=== PATIENT | female | born 1975 | race Caucasian/White ===

== ENCOUNTER 2020-12-13 16:44 | Emergency (ER) | payer OTHER ==
[~2020-12-13] VITALS: Ht 152.4 cm; Wt 106.8 kg
[2020-12-13 16:48] VITALS: BP 168/111
[2020-12-13] MEDS ORDERED: acetaminophen 325mg tablet PO ONE ×2 (18:15)
[2020-12-13 19:17] LABS: URINE HCG NEGATIVE (NEG)
[2020-12-13 19:18] LABS: CLARITY,URINE CLEAR (Clear); COLOR,URINE YELLOW (Yellow); GLUCOSE, URINE NEGATIVE (Neg); KETONES,URINE NEGATIVE (Neg); LEUKOCYTE ESTERASE ,URINE NEGATIVE (Neg); NITRITES, URINE NEGATIVE (Neg); OCCULT BLOOD,URINE SMALL (Neg); PH,URINE 5.5 (4.8-8.0); PROTEIN,URINE NEGATIVE (Neg); UROBILINOGEN,URINE 0.2 E.U/dL (0.2-1.0)
[2020-12-13 19:19] LABS: UA COLLECTION TYPE CLN CATCH MIDSTREAM
[2020-12-13 19:24] LABS: BACTERIA,URINE NONE SEEN /HPF (Neg); RBC,URINE 0-2 /HPF (0-2); SQUAMOUS EPITHELIAL CELL,UR MODERATE /LPF (FEW); WBC,URINE 0-4 /HPF (0-4)
[2020-12-13] MEDS ORDERED: ondansetron 4mg rapidly disintigrating tab PO ONE (19:50)
[2020-12-13] MEDS ORDERED: HYDR-3965 PO (19:53)
[2020-12-13] MEDS ORDERED: ONDA4TAB6 PO (19:54)
== END 2020-12-13 20:09 | disposition home or self-care (01) ==
LOC: ER 16:45
DX: R14.0 Abdominal distension (gaseous) (principal); I10 Essential (primary) hypertension; R06.02 Shortness of breath; E11.9 Type 2 diabetes mellitus without complications; Z72.89 Other problems related to lifestyle; Z98.890 Other specified postprocedural states
CPT/HCPCS: 76700; 81001; 81025; 99284

== ENCOUNTER 2022-01-26 02:37 | Emergency (ER) | payer OTHER ==
[~2022-01-26] VITALS: Ht 149.9 cm; Wt 95.5 kg
[~2022-01-26 02:37] MED LIST: ONDA4TAB6 PO
[2022-01-26 06:24] LABS: BASOPHILS # (AUTO) 0.1 X10'3 (0-0.2); BASOPHILS % (AUTO) 0.7 % (0-1); EOSINOPHILS # (AUTO) 0.1 X10'3 (0-0.9); EOSINOPHILS % (AUTO) 0.8 % (0-6); HEMATOCRIT 43.6 % (35.0-45.0); HEMOGLOBIN 14.8 g/dl (12.0-16.0); LYMPHOCYTES # (AUTO) 2.2 X10'3 (1.1-4.8); LYMPHOCYTES % (AUTO) 14.5 % (21-51); MEAN CORPUSCULAR HEMOGLOBIN 30.2 PG (27.0-31.0); MEAN CORPUSCULAR HGB CONC 33.8 g/dL (33.0-36.5); MEAN CORPUSCULAR VOLUME 89.2 FL (78-98); MEAN PLATELET VOLUME 9.3 FL (7.4-10.4); MONOCYTES # (AUTO) 0.8 X10'3 (0-0.9); MONOCYTES % (AUTO) 5.5 % (2-12); NEUTROPHILS % (AUTO) 78.5 % (42-75); PLATELET COUNT 225 X10'3 (140-440); RED BLOOD COUNT 4.89 X10'6 (4.20-5.60); RED CELL DISTRIBUTION WIDTH 14.2 % (11.5-14.5); WHITE BLOOD COUNT 15.2 X10'3 (4.5-11.0)
[2022-01-26 06:35] LABS: URINE HCG NEGATIVE (NEG)
[2022-01-26 06:48] LABS: CLARITY,URINE SLIGHTLY CLOUDY (Clear); COLOR,URINE YELLOW (Yellow); GLUCOSE, URINE NEGATIVE (Neg); KETONES,URINE NEGATIVE (Neg); LEUKOCYTE ESTERASE ,URINE NEGATIVE (Neg); NITRITES, URINE NEGATIVE (Neg); OCCULT BLOOD,URINE SMALL (Neg); PH,URINE 5.5 (4.8-8.0); PROTEIN,URINE NEGATIVE (Neg); UROBILINOGEN,URINE 0.2 E.U/dL (0.2-1.0)
[2022-01-26] MEDS ORDERED: morphine 4 MG/ML inj SYRINge IV ONE (06:50)
[2022-01-26] MEDS ORDERED: normal saline 1000ML IV soln IVB ONE (06:50)
[2022-01-26] MEDS ORDERED: ondansetron/PF 4mg/2ml inj IV ONE (06:50)
[2022-01-26 06:53] LABS: ALANINE AMINOTRANSFERASE 23 U/L (12-78); ALBUMIN 3.6 G/DL (3.4-5.0); ALBUMIN/GLOBULIN RATIO 0.7 (1.1-1.5); ALKALINE PHOSPHATASE 125 IU/L (46-116); ANION GAP 8 (8-16); ASPARTATE AMINO TRANSFERASE 18 U/L (10-37); BILIRUBIN,TOTAL 0.6 MG/DL (0.1-1.0); BLOOD UREA NITROGEN 22 MG/DL (7-18); BUN/CREATININE RATIO 31.4 (6.6-38.0); CHLORIDE 99 MMOL/L (99-107); GLUCOSE 202 MG/DL (70-104); POTASSIUM 3.7 MMOL/L (3.5-5.1); SODIUM 134 MMOL/L (135-145); TOTAL CARBON DIOXIDE 26.8 MMOL/L (24-32); TOTAL PROTEIN 8.5 G/DL (6.4-8.2); eGFR 89 ML/MIN
[2022-01-26 06:55] LABS: LIPASE 63 U/L (73-393)
[2022-01-26 06:57] LABS: UA COLLECTION TYPE CLN CATCH MIDSTREAM
[2022-01-26 06:58] LABS: BACTERIA,URINE FEW /HPF (Neg); MUCUS STRANDS MODERATE /LPF (Neg); RBC,URINE 0-2 /HPF (0-2); SQUAMOUS EPITHELIAL CELL,UR MANY /LPF (FEW); WBC,URINE 0-4 /HPF (0-4)
--- NOTE | 2022-01-26 07:10 | NUR ---
US TECH AT BEDSIDE.
--- NOTE | 2022-01-26 07:17 | NUR ---
DR WARD AT BEDSIDE.
[2022-01-26] MEDS ORDERED: ketorolac tromethamine 15mg/ml inj. IV ONE (07:20)
[2022-01-26] MEDS ORDERED: morphine 2 MG/ML inj. syringe IV PRN ×2 (09:50→10:15)
[2022-01-26] MEDS ORDERED: iohexol 350 MG/1 ML 200ml bottle ONE (10:16)
[2022-01-26] MEDS ORDERED: levoFLOXACIN-Levaquin 750MG/D5 150 ML IV ONE (11:20)
[2022-01-26] MEDS ORDERED: AZIT-31 PO (11:23)
[2022-01-26] MEDS ORDERED: HYDR-3965 PO (11:23)
[2022-01-26] MEDS ORDERED: BENZ-38 PO (11:23)
[2022-01-26 13:26] VITALS: BP 124/64
== END 2022-01-26 13:29 | disposition home or self-care (01) ==
LOC: ER 02:38
DX: K59.00 Constipation, unspecified (principal); J18.9 Pneumonia, unspecified organism; R07.9 Chest pain, unspecified; I10 Essential (primary) hypertension; J45.909 Unspecified asthma, uncomplicated; E11.9 Type 2 diabetes mellitus without complications; F17.200 Nicotine dependence, unspecified, uncomplicated
CPT/HCPCS: 36415; 71045; 71275; 74176; 76700; 80053; 81001; 81025; 82948; 83690; 83880; 84484; 85025; 93005; 96361; 96365; 96375; 96376; 99285; J1885; J1956; J2270; J2405; J3490; J7030; Q9967

== ENCOUNTER 2022-12-01 10:20 | Emergency (ER) | payer OTHER ==
[~2022-12-01] VITALS: Ht 149.9 cm; Wt 111.6 kg
[2022-12-01 10:22] VITALS: BP 195/89
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
[2022-12-01] MEDS ORDERED: SULF1TAB45 PO (10:49)
[2022-12-01] MEDS ORDERED: CEPH250T PO (10:49)
[2022-12-01] MEDS ORDERED: cephalexin 500mg capsule PO ONE (10:50)
[2022-12-01] MEDS ORDERED: sulfamethoxazole/trimethoprim DS (800/160mg) tablet PO ONE (10:50)
== END 2022-12-01 11:31 | disposition home or self-care (01) ==
LOC: ER 10:21
DX: H00.034 Abscess of left upper eyelid (principal); I10 Essential (primary) hypertension; J45.909 Unspecified asthma, uncomplicated; E11.9 Type 2 diabetes mellitus without complications; Z90.49 Acquired absence of other specified parts of digestive tract; Z79.899 Other long term (current) drug therapy
CPT/HCPCS: 99284

== ENCOUNTER 2024-08-31 12:49 | Emergency (ER) | payer OTHER ==
[~2024-08-31] VITALS: Ht 151.8 cm; Wt 96.8 kg
[2024-08-31] MEDS: benzonatate 100mg capsule PO ONE (14:49)
[2024-08-31 14:53] LABS: BASOPHILS % (AUTO) 0.6 % (0-1); EOSINOPHILS # (AUTO) 0.1 X10'3 (0-0.9); EOSINOPHILS % (AUTO) 1.7 % (0-6); HEMATOCRIT 37.9 % (35.0-45.0); LYMPHOCYTES # (AUTO) 1.4 X10'3 (1.1-4.8); LYMPHOCYTES % (AUTO) 23.2 % (21-51); MEAN CORPUSCULAR HEMOGLOBIN 31.1 PG (27.0-31.0); MEAN CORPUSCULAR HGB CONC 34.3 g/dL (33.0-36.5); MEAN CORPUSCULAR VOLUME 90.7 FL (78-98); MEAN PLATELET VOLUME 8.9 FL (7.4-10.4); MONOCYTES # (AUTO) 0.9 X10'3 (0-0.9); NEUTROPHILS # (AUTO) 3.7 X10'3 (1.8-7.7); NEUTROPHILS % (AUTO) 60.5 % (42-75); PLATELET COUNT 156 X10'3 (140-440); RED BLOOD COUNT 4.17 X10'6 (4.20-5.60); RED CELL DISTRIBUTION WIDTH 13.4 % (11.5-14.5); WHITE BLOOD COUNT 6.1 X10'3 (4.5-11.0)
[2024-08-31] MEDS: albuterol 2.5 MG/3 ML nebule NEB ONE (15:06)
[2024-08-31 15:08] VITALS: PULSE 85; RESP 20; O2SAT 97
[2024-08-31 15:15] VITALS: PULSE 77; RESP 20; O2SAT 99
[2024-08-31 15:18] LABS: ALBUMIN 3.3 G/DL (3.4-5.0); ANION GAP 7 (8-16); BLOOD UREA NITROGEN 12 MG/DL (7-18); BUN/CREATININE RATIO 19.7 (10.0-20.0); CALCIUM 8.2 MG/DL (8.5-10.1); CHLORIDE 101 MMOL/L (99-107); CREATININE 0.61 MG/DL (0.40-0.90); GLUCOSE 142 MG/DL (70-104); PRO BRAIN NATRIURETIC PEPTIDE 31 PG/ML (0-125); SODIUM 137 MMOL/L (135-145); TOTAL CARBON DIOXIDE 28.9 MMOL/L (24-32); eCRCL 78 ML/MIN; eGFR > 90 ML/MIN
[2024-08-31] MEDS: dexamethasone sod phosphate 10mg/ml inj PO STA (15:31)
[2024-08-31] MEDS ORDERED: ALBU18HF2 INH (15:32)
[2024-08-31] MEDS ORDERED: PRED20TA PO (15:32)
[2024-08-31] MEDS ORDERED: TAM75C PO (15:32)
[2024-08-31] MEDS: POTASSIUM CHLORIDE 20 MEQ/15 ML oral solution PO ONE (15:34)
[2024-08-31 15:43] VITALS: BP 108/75; PULSE 89; RESP 20; TEMP 98.6; O2SAT 93
== END 2024-08-31 15:56 | disposition home or self-care (01) ==
LOC: ER 12:50
DX: J10.1 Influenza due to other identified influenza virus with other respiratory manifestations (principal); E87.6 Hypokalemia; E11.9 Type 2 diabetes mellitus without complications; G47.30 Sleep apnea, unspecified; I10 Essential (primary) hypertension; J45.909 Unspecified asthma, uncomplicated; F17.210 Nicotine dependence, cigarettes, uncomplicated; Z90.49 Acquired absence of other specified parts of digestive tract; Z20.822 Contact with and (suspected) exposure to COVID-19
CPT/HCPCS: 36415; 71046; 80048; 83605; 83880; 85025; 87040; 87502; 87503; 87811; 94640; 99284; J1100; 94760

== ENCOUNTER 2025-01-12 21:55 | Emergency (ER) | payer OTHER ==
[~2025-01-12] VITALS: Ht 152.4 cm; Wt 92.7 kg
[~2025-01-12 21:55] MED LIST changes: +ALBU18HF2 INH
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
[2025-01-12 23:31] VITALS: BP 157/100; O2SAT 97
[2025-01-12] MEDS: ibuprofen tablet 400 MG TABLET PO ONE (23:33)
--- NOTE | 2025-01-13 00:02 | RADIOLOGY REPORT ---
CLINICAL INDICATION: pain TECHNIQUE: DI HAND, COMPLETE (3VW MIN) Comparison: None FINDINGS: No osseous or joint abnormality identified with no fracture or dislocation. Joint spaces are normal. IMPRESSION: No abnormality demonstrated.
[2025-01-13 00:26] VITALS: PULSE 78; RESP 14; TEMP 97.2
== END 2025-01-13 00:27 | disposition home or self-care (01) ==
LOC: ER 21:56
DX: M54.2 Cervicalgia (principal); M25.521 Pain in right elbow; M25.511 Pain in right shoulder; E11.9 Type 2 diabetes mellitus without complications; G47.30 Sleep apnea, unspecified; I10 Essential (primary) hypertension; J45.909 Unspecified asthma, uncomplicated; Z90.49 Acquired absence of other specified parts of digestive tract; V23.49XA Other motorcycle driver injured in collision with car, pick-up truck or van in traffic accident, initial encounter; Y93.89 Activity, other specified; Y92.89 Other specified places as the place of occurrence of the external cause; Y99.8 Other external cause status
CPT/HCPCS: 73130; 99283